=== PATIENT | male | born 1980 | race Caucasian/White ===

== ENCOUNTER 2024-04-18 12:23 | Emergency (ER) | payer MEDICAID, SELFPAY ==
[2024-04-18 12:31] VITALS: BP 142/96
--- NOTE | 2024-04-18 13:10 | ED.GENMED ---
History of Present Illness
General
Chief Complaint: Skin Problem
Source: patient
Time Seen by Provider: 04/18/24 13:03
History of Present Illness
History of Present Illness:
43-year-old male with past medical history of substance abuse presenting to the emergency department for evaluation of multiple erythematous bumps on his skin that he states started around 3 to 4 days ago after getting out of residential. Patient was in
residential for his substance abuse. He notes that he had overdosed on opiates and was given a sternal rub and multiple doses of Narcan. He reports that the sternal rub caused sloughing of the skin over the sternum but states the main cause for concern
are the multiple erythematous bumps popping up on his skin noting multiple on the bilateral upper extremities, lower extremities and the left side of his face patient states they are somewhat painful not pruritic.
Past History
Past History
ED Past Medical History: Psychiatric (Polysubstance abuse)
ED Past Surgical History: Brain, Tonsilectomy and Other
Social History
Tobacco: Smoker
Alcohol: None
Drug: Narcotics
Personal: Single
Living: alone
Review of Systems
Review of Systems
All Other Systems: ROS reviewed and negative except as documented in HPI and ROS
Phy Exam
Physical Exam
Physical Exam:
GENERAL: Alert , in no apparent distress
EYE: conjunctiva clear
Head: Normocephalic atraumatic
NECK: Supple,
ENT: mmm.
LUNGS: no acute respiratory distress
NEUROLOGICAL: Alert and oriented
SKIN: Warm and dry, large abrasion over the proximal third of the sternum without any surrounding cellulitic changes. There are also multiple small pustules with some mild surrounding erythema on the bilateral upper extremities, anterior lower legs
as well as the left temporal region
MUSCULOSKELETAL: well perfused.
PSYCH: Normal and appropriate interaction.
Scores
Heart Failure Risk
Heart Failure Risk Score: Not Applicable
Heart Score for Chest Pain Patients
STEMI patient?: Not applicable
Withdrawal Assessment of Alcohol
Withdrawal Assessment Completed?: Not applicable
Course
Vital Signs
Initial and Last Documented VS:
Initial Vital Signs
Temp Pulse Resp BP Pulse Ox
98.4 F 69 16 142/96 96
04/18/24 12:31 04/18/24 12:31 04/18/24 12:31 04/18/24 12:04/18/24 12:31
Last Documented Vital Signs
Temp Pulse Resp BP Pulse Ox
98.4 F 69 16 142/96 96
04/18/24 12:31 04/18/24 12:04/18/24 12:04/18/24 12:31 04/18/24 12:31
MDM/Problems Addressed
Differential Diagnosis Includes:
Skin abrasion, pustules/MRSA, cellulitis, abscess, scabies, bedbugs, skin popping
MDM/Problems Addressed:
43-year-old male presenting to the emergency department for evaluation of multiple pustules that have been forming over his body since being released from shelter couple days ago. Exam seems to be most consistent with multiple small pustules but
none amenable to incision and drainage. The large area of abrasion of the sternum needs localized wound care but otherwise no emergent pathologies. Prescription for doxycycline sent to pharmacy. Patient was offered [facility] however he states he has
been through the rehab system before and is navigating this without any issues on his own. Aware of return precautions. Otherwise stable for discharge home.
*Pulse Oximetry
Patient hypoxic: no
*Critical Care Note
Total Time (30-74mins, 75-104mins- exclusive of procedures): Not Applicable
ED Attending Note
-
Portions of this chart may have been created with voice recognition software.� Occasional wrong word or��sound alike� substitutions may have occurred due to the inherent limitations of voice recognition software.
Discharge Plan
Departure
Patient Disposition: Home (Routine Discharge)
Date of Disposition: 04/18/24
Time of Disposition: 13:10
Patient with high blood pressure during this ER visit?: Yes
Discharge Problem:
Substance abuse, Skin pustule
Instructions: Cellulitis (Skin Infection), Adult (DC)
Prescriptions:
New
doxycycline hyclate 100 mg tablet
100 mg PO BID 10 Days Qty: 20 0RF
Interventions
Interventions:
*Risk Screen - Suicide Last Done: 04/18/24 12:31
*General Assessment Last Done: 04/18/24 12:31
*Neglect/Abuse Screening Last Done: 04/18/24 12:31
Discharge Date and Time
Print Language: AMHARIC
[2024-04-18 13:28] VITALS: BP 152/88
== END 2024-04-18 13:35 | disposition home or self-care (01) ==
LOC: EMR 12:23
PROVIDERS: EMERGENCY PHYSICIAN Emergency Medicine
DX: F19.10 Other psychoactive substance abuse, uncomplicated (principal); L08.9 Local infection of the skin and subcutaneous tissue, unspecified; F17.200 Nicotine dependence, unspecified, uncomplicated
CPT/HCPCS: 99282